=== PATIENT | female | born 1990 | race Caucasian/White ===

== ENCOUNTER 2019-01-05 14:48 | Emergency (ER) | payer OTHER ==
[~2019-01-05] VITALS: Ht 157.5 cm; Wt 57.6 kg
[2019-01-05] MEDS ORDERED: KEPPRA1000 MG PO (14:58)
[2019-01-05] MEDS ORDERED: PROZAC10 MG PO (14:59)
[2019-01-05] MEDS ORDERED: ZOLOFT50 MG PO (14:59)
[2019-01-05 15:52] LABS: URINE BILIRUBIN NEGATIVE (Negative); URINE BLOOD NEGATIVE (Negative); URINE CLARITY CLEAR; URINE COLOR YELLOW; URINE GLUCOSE-RANDOM NEGATIVE (Negative); URINE KETONES NEGATIVE (Negative); URINE LEUKOCYTES NEGATIVE (Negative); URINE NITRITE NEGATIVE (Negative); URINE PROTEIN NEGATIVE (Negative); URINE SPECIFIC GRAVITY 1.015 (1.005-1.030)
[2019-01-05] MEDS ORDERED: IBUPROFEN 800800 M1 PO (16:32)
[2019-01-05] MEDS ORDERED: VALTREX1000 MG PO (16:32)
[2019-01-05 17:00] VITALS: BP 122/70
== END 2019-01-05 17:36 ==
LOC: M.ERS 14:48
PROVIDERS: Nurse Practitioner Psychiatric/Mental Health
DX: G51.0 Bell's palsy (principal); B02.9 Zoster without complications; F17.200 Nicotine dependence, unspecified, uncomplicated; F32.9 Major depressive disorder, single episode, unspecified; F41.9 Anxiety disorder, unspecified